=== PATIENT | male | born 1980 | race American Indian/Alaskan Native ===

== ENCOUNTER 2018-11-14 08:15 | Emergency (ER) | payer OTHER ==
[~2018-11-14] VITALS: Ht 188 cm; Wt 125.6 kg
[2018-11-14] MEDS ORDERED: PREDNISONE20 MG PO (08:40)
[2018-11-14] MEDS ORDERED: NORCO 7.5-3251 EACH PO (08:40)
== END 2018-11-14 08:50 | disposition home or self-care (01) ==
LOC: ED 08:15
DX: M10.9 Gout, unspecified (principal)
CPT/HCPCS: 99283